=== PATIENT | female | born 1960 | race Caucasian/White ===

== ENCOUNTER 2017-06-13 13:48 | Day surgery (SDC) | payer OTHER ==
[~2017-06-13] VITALS: Ht 167.6 cm; Wt 55.6 kg
[2017-06-13 14:07] VITALS: BP 131/74
[2017-06-13] MEDS ORDERED: LACTATED RINGERS 1,000 ML IV SCH (14:09)
[2017-06-13] MEDS ORDERED: PLEASE ENTER HEIGHT AND WEIGHT MC SCH (14:30)
[2017-06-13] MEDS ORDERED: ONDANSETRON 2MG/ML, 2ML ONE ×2 (14:32→17:43)
[2017-06-13] MEDS ORDERED: SUCCINYLCHOLINE 20 MG/ML, 10ML ONE (14:32)
[2017-06-13] MEDS ORDERED: GLYCOPYRROLATE 0.2MG/1ML, 5ML ONE (14:32)
[2017-06-13] MEDS ORDERED: FENTANYL PF 250 MCG/5ML ONE (14:32)
[2017-06-13] MEDS ORDERED: ROCURONIUM 10 MG/ML,10ML ONE (14:32)
[2017-06-13] MEDS ORDERED: MIDAZOLAM 1 MG/ML, 2ML ONE (14:32)
[2017-06-13] MEDS ORDERED: PROPOFOL 10 MG/ML, 20ML ONE (14:32)
[2017-06-13] MEDS ORDERED: CEFAZOLIN 1,000 MG ONE (14:32)
[2017-06-13] MEDS ORDERED: DEXAMETHASONE 4 MG/ML, 1ML ONE (14:32)
[2017-06-13] MEDS ORDERED: NEOSTIGMINE 1 MG/ML, 10ML ONE (14:32)
[2017-06-13] MEDS ORDERED: LISI-167 PO (14:46)
[2017-06-13] MEDS ORDERED: BONIVA (14:46)
[2017-06-13] MEDS ORDERED: ASPI-515 PO (14:46)
[2017-06-13] MEDS ORDERED: EPINEPHRINE 1 MG/ML, 1ML ONE (14:49)
[2017-06-13] MEDS ORDERED: BUPIVACAINE/PF 0.5% ONE (14:49)
[2017-06-13] MEDS ORDERED: ACETAMINOPHEN 325 MG TABLET PO PRN (15:00)
[2017-06-13] MEDS ORDERED: PROMETHAZINE 25 MG/ML, 1ML IV PRN (15:00)
[2017-06-13] MEDS ORDERED: OXYcodone 5 MG/5 ML ORAL.SOL UDC PO PRN (15:00)
[2017-06-13] MEDS ORDERED: ONDANSETRON 2MG/ML, 2ML IVPush PRN ×2 (15:00→19:00)
[2017-06-13] MEDS ORDERED: HYDROcodone/APAP 7.5-325MG/15ML UDC PO PRN ×2 (15:00→19:00)
[2017-06-13] MEDS ORDERED: LIDOCAINE-MPF 2% ,5ML ONE (16:01)
[2017-06-13] MEDS ORDERED: ACETAMINOPHEN 650 MG/20.3 ML UDC ONE (16:47)
[2017-06-13] MEDS ORDERED: OXYcodone 5 MG/5 ML ORAL.SOL UDC ONE (16:47)
[2017-06-13] MEDS ORDERED: FENTANYL PF 100 MCG/2ML ONE (16:47)
[2017-06-13] MEDS ORDERED: MEPERIDINE/PF 50 MG/ML ONE (16:47)
[2017-06-13] MEDS: FENTANYL PF 100 MCG/2ML IV PRN ×2 (16:51→17:03)
[2017-06-13] MEDS ORDERED: HYDROmorphone 2 MG/ML, 1ML ONE (17:10)
[2017-06-13] MEDS: HYDROmorphone 1 MG/ML, 1ML IV PRN ×3 (17:12→17:37)
[2017-06-13] MEDS ORDERED: MEPERIDINE/PF 25MG/0.5ML IVPush PRN (18:30)
[2017-06-13] MEDS ORDERED: ONDA4TAB13 SL (19:18)
[2017-06-13] MEDS ORDERED: HYDR15SO3 PO (19:20)
[2017-06-14] MEDS ORDERED: LISINOPRIL 10 MG TABLET PO SCH (09:00)
[2017-06-17] MEDS ORDERED: IBANDRONATE HOMEMEDPO SCH (09:00)
[2017-06-17] MEDS ORDERED: [UNRECOGNIZED DRUG - OTHER] HOMEMEDPO SCH (09:00)
== END 2017-06-13 23:55 | disposition home or self-care (01) ==
LOC: OR 13:48 → 4NOR 18:23 → OR 23:55
PROVIDERS: ATTEND Specialist
DX: J35.01 Chronic tonsillitis (principal); J31.2 Chronic pharyngitis; R19.6 Halitosis; I10 Essential (primary) hypertension
CPT/HCPCS: 42826; 88304; J0171; J0330; J0690; J1100; J1170; J2250; J2405; J2704; J2710; J3010; J3490; J7120